=== PATIENT | female | born 1995 | race Caucasian/White ===

== ENCOUNTER 2016-08-24 17:45 | Inpatient (IN) | payer MEDICAID ==
[~2016-08-24] VITALS: Ht 157.5 cm; Wt 86.4 kg
[2016-08-24 17:55] VITALS: BP 137/90
[2016-08-24] MEDS ORDERED: ESCI5TAB PO (18:29)
[2016-08-24] MEDS ORDERED: PREN1TAB79 PO (18:29)
[2016-08-24] MEDS ORDERED: OXYTOCIN INJ 20 UNIT in NS 1000ml 1,000 ML IV PRN (18:38)
[2016-08-24] MEDS ORDERED: CALCIUM CARBONATE CHEWABLE 300 MG (TUMS) TABLET PO PRN (18:40)
[2016-08-24] MEDS ORDERED: SODIUM CHLORIDE FLUSH 10 ML ONE (18:47)
[2016-08-24 19:00] VITALS: BP 120/73
[2016-08-24 19:03] LABS: MEAN CORPUSCULAR HEMOGLOBIN 31.3 PG (26.0-34.0); MEAN CORPUSCULAR HGB CONC 33.8 g/dL (31.0-37.0); MEAN PLATELET VOLUME 9.2 FL (6.0-9.5); WHITE BLOOD COUNT 11.75 10^3uL (4.0-11.0)
[2016-08-24 20:00] VITALS: BP 129/74
[2016-08-24 21:00] VITALS: BP 145/75
--- NOTE | 2016-08-24 21:28 | History and Physical (E) ---
History & Physical (OB) Subjective: CC: tony hernandez 21 year old G1 at 37 0/7 WGA presents with SROM at home at 16:40. It was a large gush of fluid, and amnisure was positive on arrival. She was sharon every 10 minutes on arrival. Reports good movement and no vaginal bleeding. complicated by depression treated with lexapro, and planned adoption. PNC: [facility] Hx: none PMHx: none PSHx: FOB Favio Russell. No tobacco or alcohol use. Marijuana use at the beginning of the . Planned adoption. Allergies: Coded Allergies: No Known Drug Allergies (Unverified , 08/24/16) Home Medications: Reported Medications Escitalopram Oxalate (Lexapro)5 Mg Tablet5 Mg PO DAILY 08/24/16 Vits W-Ca,Fe,Fa(<1MG) ( Vitamins)1 Each Tablet1 Each PO DAILY@ 1700 08/24/16 Objective: Vital Signs Date Time Temp Pulse Resp B/P Pulse Ox O2 Delivery O2 Flow Rate FiO2 08/24/16 19:00 77 120/73 08/24/16 17:55 98.8 20 Laboratory Results Past 24 Hrs 08/24/16 18:00: Membranes Rupture (PAMG-1) Positive 08/24/16 18:55: Hematocrit 39.60, Hemoglobin 13.4, Mean Corpuscular Hemoglobin 31.3, Mean Corpuscular Hemoglobin Concent 33.8, Mean Corpuscular Volume 93, Mean Platelet Volume 9.2, Platelet Count 341, Red Blood Count 4.28, Red Cell Distribution Width 12.5, White Blood Count 11.75 General: Alert and oriented, NAD Chest: CTA Abdomen: Gravid Cardiovasular: RRR, No murmur Extremities: No edema FHT's: 130s, moderately reactive, +accels, no decels. Cat I. Cx: Foyil: Q4min Screenings: Blood type: A Positive, Rubella Non-Immune, RPR non-reactive, HBV Negative, HIV Negative , GBS negative. Problems/Plans: (1) 37 weeks gestation of Assessment & Plan: with SROM. Proceed with expectant management, if no cervical change by 12 hours (4am), will start pitocin for augmentation. Epidural when desired. (2) with adoption planned Assessment & Plan: The patient will be contacting the adoption agency. She plans to take care of baby until dismissal. Additional Copies to: End of Report . KISHAN HARRISON MD Aug 24, 2016 21:28
[2016-08-25] VITALS (30 sets, daily range): BP systolic 96–154; BP diastolic 52–97
[2016-08-25] MEDS: NALBUPHINE 10 MG/ML (NUBAIN) 1 ML AMP IV PRN ×2 (00:11→03:30)
[2016-08-25] MEDS ORDERED: OXYTOCIN INJ 20 UNIT in NS 1000ml 1,000 ML SCH (04:00)
[2016-08-25] MEDS ORDERED: ROPIVACAINE 1% 10 MG/ML (NAROPIN) 20 ML AMPUL ONE (06:30)
[2016-08-25] MEDS: ONDANSETRON 2 MG/ML (Z0FRAN) 2 ML VIAL IV PRN ×2 (07:57→10:18)
[2016-08-25 08:16] LABS: BILIRUBIN,URINE Negative (Negative); CLARITY,URINE Clear; COLOR,URINE Yellow; GLUCOSE, URINE (UA) Negative (Negative); LEUKOCYTE ESTERASE ,URINE Negative (Negative); PH,URINE 5.5 (5.0 - 8.0); UROBILINOGEN,URINE 0.2 mg/dL (0.2-1.0)
--- NOTE | 2016-08-25 08:23 | Progress Note (E) ---
Progress Note Pitocin started at 4am, up to 7mu now. Ctx Q4 min. Epidural placed this morning. Cvx /-2 with caput felt. FHT 145 min reactivity, no accels or decels, Cat II. Responded to scalp stim with accel. Continue expectant management, I do have concerns with this amount of caput about malpresentation. KSIHAN HARRISON MD Aug 25, 2016 08:22
[2016-08-25] MEDS ORDERED: HYDROcodone/APAP 5 MG/325 MG (NORCO) TAB PO PRN (12:05)
[2016-08-25] MEDS ORDERED: LANOLIN OINTMENT 28 GM TUBE TOP PRN (12:05)
[2016-08-25] MEDS ORDERED: IBUPROFEN 600 MG (MOTRIN) TAB PO PRN (12:05)
[2016-08-25] MEDS ORDERED: M-M-R II (MEASLES,MUMPS,RUBELLA) VACCINE SC SCH (12:05)
[2016-08-25] MEDS ORDERED: NON-FORMULARY MEDICATION 1 EA EA (Escitalopram Oxalate (Lexapro) 5 MG) PO SCH (12:05)
[2016-08-25] MEDS ORDERED: ESCITALOPRAM 10 MG (LEXAPRO) TABLET PO SCH (13:00)
[2016-08-25] MEDS ORDERED: SODIUM CHLORIDE FLUSH 10 ML ONE (16:37)
[2016-08-25] MEDS ORDERED: DOCUSATE SODIUM 100 MG (COLACE) CAP PO SCH (21:00)
--- NOTE | 2016-08-26 04:50 | NUR ---
Wakened to feed baby. Asked if she wanted to nurse him. Declined, asking nursing staff to bottlefeed him.
--- NOTE | 2016-08-26 06:35 | NUR ---
End of shift note. Awake and holding baby. Slept well throughout the night. Medicated just now for cramping but no other needs expressed. Smiles during conversation. Expressed nursing staff's support of any decisions she will make today. Father of baby sleeps on cot at bedside.
[2016-08-26 08:15] VITALS: BP 116/67
--- NOTE | 2016-08-26 10:36 | Vaginal Delivery Summary (E) ---
Vaginal Delivery Summary At 1150 on 08/25/16 this 21 year old G 1 now P1 spontaneously delivered a viable male at 37 weeks gestation. The patient presented for care at 12 weeks and ultrasound at that time established dates. This complications: depression, planned adoption Maternal labs: Blood type: A Positive, Rubella Non-Immune, RPR non-reactive, HBV Negative, HIV Negative , GBS negative. Tdap booster received on 2016. She presented for SROM last night. At presentation, she was 2.5 cm dilated. She was allowed to labor expectantly through the night, but did not make change, so pitocin was started for augmentation. It was at a max of 7mu. Epidural was placed at 0700, with good pain relief. At 1100, she was complete and was allowed to labor down for about 30 min. She pushed for approximately 15 minutes. The head presented occiput posterior initially, but restituted to OA at the perineum, and delivered easily, followed by the anterior shoulder. The posterior shoulder and the body followed in a controlled fashion and baby was placed on mom's abdomen. The cord was allowed to stop pulsing and then clamped x2 and cut by me. The placenta then delivered spontaneously and intact, with 3 vessel cord noted. The pitocin bag was run in. There were no lacerations. Estimated blood loss 50 ml. weight: 6 pounds, 3 ounces, 2810 grams. Apgars: at 1 minute, at 5 minutes, and at 10 minutes. Both mom and baby are stable at this time. KISHAN HARRISON MD Aug 25, 2016 12:14
[2016-08-26] MEDS ORDERED: DOCU100C8 PO (10:40)
[2016-08-26] MEDS ORDERED: IBUP-1772 PO (10:40)
--- NOTE | 2016-08-26 11:22 | Progress Note (E) ---
Post- Progress Note Subjective: Doing well. Nursed a bit at first, but then transitioned to bottle. Ambulating, voiding, passing flatus, no BM yet. Tolerating full diet. Lochia minimal. Pain controlled with ibuprofen. She is ready to be discharged. Objective: Vital Signs Date Time Temp Pulse Resp B/P Pulse Ox O2 Delivery O2 Flow Rate FiO2 08/26/16 08:15 98.9 87 20 116/67 08/25/16 20:00 Room air I & O 08/25/16 08/26/16 19:00 07:00 Intake Total 4374 ml Output Total 500 ml Balance 3874 ml Laboratory Tests 08/26/16 06:55: Hematocrit 40.10, Hemoglobin 13.6 Blood type: A Positive, Current Medications Ibuprofen 600 mg Q6H PRN PO Last administered on 08/26/16 06:33; Admin Dose 600 MG; Start 08/25/16 at 12:05 Docusate Sodium 100 mg HS PO Last administered on 08/25/16 22:00; Admin Dose 100 MG; Start 08/25/16 at 21:00 Acetaminophen/ Hydrocodone Bitart Total acetaminophen not... Q4H PRN PO; Start 08/25/16 at 12:05 Escitalopram Oxalate 5 mg DAILY PO Last administered on 08/25/16 22:00; Admin Dose 5 MG; Start 08/25/16 at 13:00 General: Alert and oriented, NAD Abdomen: Soft, non-distended, fundus firm Extremities: No edema Problems/Plans: (1) (spontaneous vaginal delivery) Assessment & Plan: Routine cares, discharge today. FU at 6 weeks. (2) with adoption planned Assessment & Plan: Baby will go to adoptive parents today. (3) Rubella nonimmune status, delivered, current hospitalization Assessment & Plan: MMR received KISHAN HARRISON MD Aug 26, 2016 10:39
== END 2016-08-26 12:45 | disposition home or self-care (01) | DRG 775 ==
LOC: EUOP 17:45 → OB 17:46 → EUOP 18:40 → OB 18:41
PROVIDERS: ADMIT Family Medicine; ATTEND Family Medicine
PROC: 10E0XZZ Delivery of Products of Conception, External Approach (ICD-10-PCS; principal; 2016-08-25)
DX: O99.344 Other mental disorders complicating childbirth (principal); F32.9 Major depressive disorder, single episode, unspecified; Z3A.37 37 weeks gestation of pregnancy; Z37.0 Single live birth
CPT/HCPCS: 36415; 81003; 84112; 85014; 85018; 85027; 86850; 86900; 86901; 90707; 99202